=== PATIENT | male | born 1990 | race Two or more races ===

== ENCOUNTER 2018-04-13 10:55 | Emergency (ER) | payer SELFPAY ==
[~2018-04-13] VITALS: Ht 165.1 cm; Wt 68.0 kg
[2018-04-13 11:05] VITALS: BP 129/84
[2018-04-13] MEDS ORDERED: ONDANSETRON ODT 4 MG TAB.RAPDIS. PO ONE (12:00)
[2018-04-13] MEDS ORDERED: NEOMY/BACITR/POLYMYXIN OINT PACKET. TP ONE (12:45)
[2018-04-13] MEDS ORDERED: CEPH500T PO (12:58)
[2018-04-13] MEDS ORDERED: MUPI22OI2 TP (12:58)
[2018-04-13] MEDS ORDERED: SULF1TAB24 PO (12:58)
--- NOTE | 2018-04-13 12:59 | PHYS DOC ---
Past Medical History Past Medical History: No Pertinent History Past Surgical History: No Surgical History Alcohol Use: None Drug Use: None Adult General Chief Complaint Chief Complaint: RING REMOVAL HPI HPI Patient is a 27 year old male who presents to the ER with complaints of a ring being stuck on his left hand 4th digit for the last week. Pt states the finger has been swollen and red. 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 Pt denies any fever, or drainage from the site. States that his finger is hot to touch and tender. Review of Systems Review of Systems Constitutional: Denies fever or chills [] Musculoskeletal: See HPI Integument: See HPI All other systems were reviewed and found to be within normal limits, except as documented in this note. Current Medications Current Medications Current Medications Medications (Trade) Dose Ordered Sig/Jaquan Start Time Stop Time Status Last Admin Dose Admin Neomycin/ Polymyxin/ Bacitracin (Triple Antibiotic Ointment) 1 pkt 1X ONCE 04/13/18 12:45 04/13/18 12:46 UNV Ondansetron HCl (Zofran Odt) 4 mg 1X ONCE 04/13/18 12:00 04/13/18 12:01 DC 04/13/18 11:56 4 MG Allergies Allergies Allergies Coded Allergies Type Severity Reaction Last Updated Verified No Known Drug Allergies 04/13/18 No Physical Exam Physical Exam Constitutional: Well developed, well nourished, no acute distress, non-toxic appearance. [] HENT: Normocephalic, atraumatic, bilateral external ears normal, nose normal. [] Eyes: conjunctiva normal, no discharge. [] Skin: dry, erythema and warmth noted to dorsal surface of L hand 4th digit with small pustule present consistent with cellulitis Extremities: L 4th digit edema and tenderness to palpation with gold colored ring stuck on finger, no cyanosis, no clubbing, ROM intact Neurologic: Alert and oriented X 3, normal motor function, normal sensory function, no focal deficits noted. [] Psychologic: Affect normal, judgement normal, mood normal. [] Current Patient Data Vital Signs Vital Signs Date Time Temp Pulse Resp B/P (MAP) Pulse Ox O2 Delivery O2 Flow Rate FiO2 04/13/18 11:05 98.2 80 18 129/84 (99) 99 Room Air 98.2 EKG EKG [] Radiology/Procedures Radiology/Procedures The gold colored ring was removed from patient's finger using a dremel to cut through the thick band[] Course & Med Decision Making Course & Med Decision Making Pertinent Labs and Imaging studies reviewed. (See chart for details) [] Dragon Disclaimer Dragon Disclaimer This electronic medical record was generated, in whole or in part, using a voice recognition dictation system. Departure Departure Impression: Primary Impression: Cellulitis of finger of left hand Additional Impression: Ring or other jewelry causing external constriction, initial encounter Disposition: HOME, SELF-CARE Condition: STABLE Referrals: NO PCP (PCP) Patient Instructions: Cellulitis, [id number] Additional Instructions: Fill prescriptions and use as directed. Apply warm moist packs to finger four times a day and as needed for comfort. Tylenol or ibuprofen as needed for pain/ fever. Return to the ER if your symptoms worsen, follow up with primary care doctor if symptoms persist. Scripts Mupirocin (MUPIROCIN OINTMENT) 22 Gm Oint...g. 1 ESSIE TP TID for WOUND CARE for 7 Days, #1 TUBE 0 Refills Prov: ABRAHAM DODGE [employer] RESPONSE COORDINATOR 04/13/18 Sulfamethoxazole/Trimethoprim (BACTRIM DS TABLET) 1 Each Tablet 1 TAB PO BID, #20 TAB 0 Refills Prov: ABRAHAM DODGE APRN 04/13/18 Cephalexin (CEPHALEXIN) 500 Mg Tablet 1 TAB PO QID for 10 Days, #40 TAB 0 Refills Prov: ABRAHAM DODGE APRN 04/13/18 Problem Qualifiers ABRAHAM DODGE APRN Apr 13, 2018 12:59
== END 2018-04-13 13:02 | disposition home or self-care (01) ==
LOC: ER 10:55
DX: L03.012 Cellulitis of left finger (principal); S60.445A External constriction of left ring finger, initial encounter; W49.04XA Ring or other jewelry causing external constriction, initial encounter; Y93.89 Activity, other specified; Y92.89 Other specified places as the place of occurrence of the external cause; Y99.8 Other external cause status
CPT/HCPCS: 99284; Q0162